=== PATIENT | male | born 1960 | race Caucasian/White ===

== ENCOUNTER 2017-03-31 10:40 | Day surgery (SDC) | payer OTHER ==
[~2017-03-31] VITALS: Ht 162.6 cm; Wt 68.2 kg
[~2017-03-31 10:40] MED LIST: AMLODIPINE BESY10 MG PO; GLUCOPHAGE1000 MG PO; LANTUS 3 M100 UNITS1 SC; LISINOPRIL40 MG PO; LOPRESSOR50 MG PO
[2017-03-31 11:23] LABS: POINT-OF-CARE METER ID UU14174212
[2017-03-31 11:25] VITALS: BP 135/85
[2017-03-31 14:35] LABS: POINT-OF-CARE METER ID UU13113675; POINT-OF-CARE USER ID ADMKMM76
[2017-03-31 15:36] VITALS: BP 169/86
== END 2017-03-31 15:59 | disposition home or self-care (01) ==
LOC: SDC 10:40
PROVIDERS: Ophthalmology
DX: E11.3531 Type 2 diabetes mellitus with proliferative diabetic retinopathy with traction retinal detachment not involving the macula, right eye (principal); E11.42 Type 2 diabetes mellitus with diabetic polyneuropathy; I10 Essential (primary) hypertension; Z79.4 Long term (current) use of insulin
CPT/HCPCS: 82948; J0330; J0690; J1100; J1170; J2250; J2405; J2795; J3010; J3300